=== PATIENT | female | born 1935 | race Caucasian/White ===

== ENCOUNTER → 2017-04-13 | Outpatient (CLI) | payer MEDICARE ==
[~2017-04-13] MED LIST: CALC1TAB87 PO; CALTTAB2 PO; CHOL1TAB42 PO; COZA50TA PO; ENBR50IN4 SQ; GABA300C3 PO; GABA300C5 PO; GLUC250C5 PO; HYDR-2768 PO; HYDR25TA5 PO; LEVO100T4 PO; LEVO100T5 PO; LOSA25TA PO; OCCUVITE PO; OMEG100010 PO; OMEGCAP2 PO; OMEP20TA93 PO; ONE-TAB PO; TAB-TAB PO; TRAM50 PO; TRAM50TA PO; TURM500C7 PO; VITA100017 PO; VITA500T83 PO
--- NOTE | 2017-04-13 10:50 | EKG ---
Date Performed: 04/13/2017 Time Performed: 08:06:48 PTAGE: 81 years EKG: Sinus bradycardia with PAC(s) Left anterior fascicular block rSr'(V1) - probable normal socrates iant Borderline ECG PREVIOUS TRACING : 11/20/2006 10.20 No change from previous tracing noted. DOCTOR: Zeyad Saavedra Interpretating Date/Time 04/13/2017 10:48:11
== END ==
LOC: CPRE 07:50
PROVIDERS: ATTEND Orthopaedic Surgery
DX: Z01.810 Encounter for preprocedural cardiovascular examination (principal); M17.11 Unilateral primary osteoarthritis, right knee; M21.161 Varus deformity, not elsewhere classified, right knee; M71.21 Synovial cyst of popliteal space [Baker], right knee; R94.31 Abnormal electrocardiogram [ECG] [EKG]
CPT/HCPCS: 93005

== ENCOUNTER 2017-04-30 07:11 | Inpatient (IN) | payer MEDICARE ==
[~2017-04-30] VITALS: Ht 162.6 cm; Wt 66.1 kg
[~2017-04-30 07:11] MED LIST changes: -CALTTAB2 PO; -COZA50TA PO; -GABA300C3 PO; -GLUC250C5 PO; -HYDR-2768 PO; -LEVO100T4 PO; -OCCUVITE PO; -OMEGCAP2 PO; -TAB-TAB PO; -TRAM50 PO; -VITA100017 PO
[2017-04-30] MEDS ORDERED: CHLORHEXIDINE GLUCONATE 2 % 1 PACK (2 CLOTHS) TOPICAL PRN (08:00)
[2017-04-30] MEDS ORDERED: POVIDONE IODINE 5% (ANTISEPSIS KIT) 4 APPLICATIONS EACH NARE PRN (08:00)
[2017-04-30] MEDS ORDERED: SODIUM CHLORID 0.9% 500 ML IV PRN (08:00)
[2017-04-30] MEDS ORDERED: ceFAZolin 2 GM PREMIX 50 ML IV SCH (08:00)
[2017-04-30] MEDS ORDERED: METOPROLOL TARTRATE 25 MG TAB PO PRN (08:00)
[2017-04-30] MEDS ORDERED: EXPAREL PERI-ARTICULAR INJECTION (TOTAL VOL. 100 ML) P-ARTICULR SCH ×2 (08:00)
[2017-04-30] MEDS ORDERED: CHLORHEXIDINE GLUCONATE 4% SOLN 120 ML BTL TOPICAL SCH (08:00)
[2017-04-30] MEDS ORDERED: LACTATED RINGER'S 1000 ML IV PRN (08:00)
[2017-04-30] MEDS ORDERED: FAT EMULSION 20% INJ 0 ML ONE (08:22)
[2017-04-30] MEDS ORDERED: LIDOCAINE HCL 1% PF 5 ML AMPULE ONE (08:43)
[2017-04-30] MEDS ORDERED: BUPIVACAINE LIPOSOME PF 1.3% 20 ML VIAL ONE (08:43)
[2017-04-30] MEDS ORDERED: MIDAZOLAM HCL 2 MG/2 ML VIAL ONE ×2 (08:48→13:46)
[2017-04-30 08:50] VITALS: PULSE 120
[2017-04-30] MEDS ORDERED: SODIUM CHLORIDE 0.9% IV SCH ×2 (09:00→12:00)
[2017-04-30] MEDS ORDERED: TRANEXAMIC ACID IV SCH ×2 (09:00→12:00)
[2017-04-30 09:07] VITALS: PULSE 53
[2017-04-30] MEDS ORDERED: GENTAMICIN SULFATE 80 MG/2 ML VIAL ONE (09:16)
[2017-04-30] MEDS ORDERED: MORPHINE SULFATE 4 MG/ML INJ IV PUSH PRN (09:45)
[2017-04-30] MEDS ORDERED: MAGNESIUM HYDROXIDE SUSP 30 ML CUP PO PRN (09:45)
[2017-04-30] MEDS ORDERED: TRANEXAMIC ACID INJ 0 MG in SODIUM CHLORIDE 0.9% INJ 100 ML IV SCH (09:45)
[2017-04-30] MEDS ORDERED: ONDANSETRON HCL 4 MG/2 ML VIAL IVP PRN (09:45)
[2017-04-30] MEDS ORDERED: ACETAMINOPHEN/HYDROcodone 325 MG/7.5 MG TAB PO PRN (09:45)
--- NOTE | 2017-04-30 09:50 | HHI.FF ---
Face to Face Verification Diagnosis: (1) Rheumatoid arthritis involving right knee (2) Primary osteoarthritis of right knee (3) Status post total right knee replacement Physical Therapy Gait training Knee: Total knee, Protocol: Right, Gait training, Full weight bearing Right LE Weight Bearing: WB as tolerated Right LE Range of Motion: Active ROM (active, active-assisted, passive range of motion. Range of motion goal is 0 extension to 135 of flexion.) Nursing Nursing: Dressing changes (start on postop day 7.) Dressing Changes: Daily dressing change (to start on postoperative day 7.), Coverderm/Primapore Additional Instructions Steri-Strips are to be removed on postoperative day 14. I have seen patient Faith Schultz on 04/30/17. My clinical findings support the need for the requested home health care services because: Ltd mobility - disease progression Limited ability to care for self High risk of falls I certify that my clinical findings support that this patient is homebound because: Post-op weakness Unsteady gait/balance Unsafe to leave home unassisted Leo Herrera MD (Charles) Apr 30, 2017 09:50
[2017-04-30] MEDS ORDERED: ECASA81 PO (09:51)
[2017-04-30] MEDS ORDERED: PHENYLEPHRINE HCL 10 MG/ML VIAL IV ONE (12:00)
[2017-04-30] MEDS ORDERED: PROPOFOL 200 MG/20 ML AMP IV ONE (12:00)
[2017-04-30] MEDS ORDERED: PHENYLEPH/NS 1000 MCG/10 ML SYR IV ONE (12:00)
[2017-04-30] MEDS ORDERED: ePHEDrine/NS 25 MG/5 ML SYRINGE IV ONE (12:00)
[2017-04-30] MEDS ORDERED: ESMOLOL HCL 100 MG/10 ML VIAL IV ONE (12:00)
[2017-04-30] MEDS ORDERED: Post-op Orders (for Pharmacy) XX ONE (13:00)
--- NOTE | 2017-04-30 13:08 | HHI.PR ---
Immediate Post Op Note Procedure Date: Apr 30, 2017 Pre Op Diagnosis: (1) Primary osteoarthritis of right knee (2) Rheumatoid arthritis involving right knee Post Op Diagnosis: (1) Primary osteoarthritis of right knee (2) Rheumatoid arthritis involving right knee Surgeon: Valeriano Herrera M.D. Flight Crew Time Clerk(s): CHUYITA Hough Procedure: Right total knee arthroplasty using [place] Triathlon prosthesis (uncemented). Findings: There was severe arthritis in the right knee with diffuse synovitis and significant erosion posteriorly in the medial compartment. Specimen(s) removed: None Estimated blood loss: 350 mL Anesthesia: Regional Block (adductor canal block), Spinal, Local (bupivacaine liposomal) Drains: Hemovac (2) IVF Tourniquet time (min at mmHg) None Patient to: PACU Patient Condition: Good Implant/Devices: SEE IMPLANT LOG (if applicable) Date/Time of Procedure: SEE SURGICAL CARE RECORD Leo Herrera MD (Charles) Apr 30, 2017 13:08
--- NOTE | 2017-04-30 13:17 | PD.OP ---
Operative Report Date of Surgery: Apr 30, 2017 Preoperative Diagnosis: (1) Primary osteoarthritis of right knee (2) Rheumatoid arthritis involving right knee Postoperative Diagnosis: (1) Primary osteoarthritis of right knee (2) Rheumatoid arthritis involving right knee Procedure: Right total knee arthroplasty with [place] Triathlon prosthesis (uncemented) Anesthesia: Spinal with supplemental adductor canal block and local with Exparel area Surgeon: Valeriano Herrera M.D. Telecommunication Operator(s): CHUYITA Hough Operation and Findings: Indications and Findings: This 81-year-old woman has had 8 years of right knee pain progressively worsening secondary to rheumatoid osteoarthritis. Ambulation tolerance is 1 block walker but she is unable to even walk to her mailbox without the walker. She has had continued increasing deformity with difficulty ascending and descending stairs and standing tolerance of only 10 minutes. Treatment has included analgesics, ambulatory aids, exercises, activity modification. Because of problems with gastrointestinal bleeding and gastroparesis she is unable to a nonsteroidal anti-inflammatory agents. Physical findings showed significant varus deformity with medial laxity, osteophytes and crepitation on motion. Radiographic findings were consistent with severe osteoarthritis and rheumatoid arthritis with [id number] appearance , significant medial erosion, osteophytes. Operative findings: There was severe arthritis in the right knee. This was predominantly in the medial compartment but also also was in the lateral patellofemoral compartment. There was erosion 2 major extent in the medial compartment. The synovium was hypertrophic and consistent with rheumatoid arthritis. The prosthesis used was a [place] Triathlon prosthesis. The femur was a size 5, uncemented, cruciate retaining. The tibial baseplate was a size 5 Tritanium with a 13 mm cruciate retaining X3 polyethylene spacer. The patella was a size 35 mm asymmetric Tritanium backed. The patient was brought to the clean-air operating suite after a regional anesthetic by abductor canal block.. A spinal anesthetic was administered. After the spinal anesthetic and then administered, there was observation of a change in the lunchroom monitor. For this reason a second electrocardiogram was obtained. This was compared by 2 anesthesiologists to the previous echocardiogram. A decision was made that this was acceptable and safe to proceed with the procedure. The position was supine with a small bolster under the hip on the operative side. A pneumatic tourniquet was applied to the upper thigh. The lower extremity was then prepped with alcohol, Hibiclens and ChloraPrep and draped in the usual manner with the knee draped free. An appropriate timeout procedure was carried out. An incision was made from about 3 fingerbreadths above the superior medial pole of patella down the tibial tubercle on the medial side. The incision was deepened through the subcutaneous tissue to the retinacular structures which were exposed medially and laterally. A medial retinacular incision was then made from the superior middle pole of patella down the tibial tubercle and up into the quadriceps tendon splitting it longitudinally and the medial one third. The patella was reflected. The infrapatellar fat pad was debulked. The anterior cruciate ligament was excised. Medial and lateral meniscectomies were initiated. A fenestration was made in the distal femur for the intramedullary referencing guide. A fenestration was made in the proximal tibia for the intramedullary referencing guide. The distal femoral cutting guide and jig were then assembled for a 5, 8 mm cut. When this was in position, the cutting block was stabilized with pins. The jig was removed. The distal femoral cut was then completed with the oscillating saw. The sizing guide was then positioned in place along [place] line and the epicondylar axis and stabilized with pins. The femoral size was then determined with the sizing guide. The 4-in-1 cutting block was then positioned in place. Anterior and posterior cuts were made followed by posterior and anterior chamfer cuts taking care to prevent injury to ligamentous structures. Osteophytes were then trimmed from the distal femur. A bone plug was then placed into the fenestration of the distal femur. The proximal tibia was then exposed. The medial and lateral meniscectomies were completed. The proximal tibial cutting guide was then positioned in place and stabilized with a pin for rotation. The depth of cut was then verified with a stylus referencing from the predetermined side. The cutting block was stabilized with pins. The jig was removed. The depth of cut was then verified and adjusted appropriately with the use of the spacer block. The proximal tibial cut was then made with the oscillating saw taking care to prevent injury to neurovascular and ligamentous structures. Proximal tibial bone was removed. Local anesthetic was administered with Exparel in the posterior capsule. The tibial baseplate trial was then positioned in place. After verifying the appropriate size, the base plate trial was positioned in place along with its spacer. The trial femoral component was then impacted into place. The alignment was checked. The trial tibial baseplate was then pinned in place on the tibia. Attention was directed to the patella. The patella drill guide was positioned in place for the appropriate sized patella. Patellar drilling was then carried out. The trial patella was positioned in place. The knee was taken through a range of motion which was easily 0 extension to 135 by gravity. The patella trial was removed. The femoral drill holes were made. The femoral trial prosthesis was removed. The tibial spacer was removed. A bone plug was placed into the proximal tibia. The tibial punch was impacted through the proximal tibial punch guide. This was all removed followed by placement of the tibial drill guide. The tibial drill holes were then made. The guide was removed. The cut ends of bone were then cleaned with pulse lavage. The tibial baseplate was then impacted into place and seated appropriately. The spacer was inserted. The the femoral component was then impacted into place and seated appropriately. The patella component was then seated with the patellar vice and tightened appropriately. The knee was taken through a range of motion which was comparable to the previous range of motion with excellent stability in flexion and extension and appropriate patellofemoral tracking. The remainder of the Exparel was then injected throughout the knee as a local anesthetic. Drains were brought out the superior lateral aspect of the suprapatellar pouch. Wound closure then commenced using 0 Vicryl interrupted [id number] sutures for the capsular and fascial structures, 2-0 Vicryl interrupted simple sutures with buried knots for the subcutaneous tissues and 4- 0 Monocryl, tenuous subcuticular closure for the skin. The wound was then dressed with Steri-Strips followed by Optifoam silver impregnated dressing. Sterile soft roll with a cooling pad and Lev bandage from the base of the toes to mid thigh were then applied. Patient was then transferred from the operating room to the recovery room in satisfactory condition having tolerated procedure well. Counts are correct. Specimens: None. Estimated blood loss: 350 mL Leo Herrera MD (Charles) Apr 30, 2017 13:17
[2017-04-30] MEDS ORDERED: HYDR-3580 PO (13:20)
[2017-04-30] MEDS ORDERED: DO NOT ADM ANY ANTICOAGULANT DRUGS PRN (13:32)
[2017-04-30 13:34] VITALS: PULSE 81
[2017-04-30] MEDS: LACTATED RINGER'S 1000 ML INJ 1,000 ML IV SCH ×2 (14:00→22:13)
[2017-04-30] MEDS: KETOROLAC TROMETHAMINE 30 MG/ML (IVP) VIAL IVP SCH ×2 (14:07→20:06)
[2017-04-30] MEDS ORDERED: *morphine SULFATE 10 MG/ML PERIprocedure ONLY ONE (14:26)
[2017-04-30] MEDS ORDERED: *ONDANSETRON 4 MG VIAL PERIprocedural Use ONLY ONE (14:50)
[2017-04-30] MEDS ORDERED: DIMETHICONE/OXYBENZONE/PADMIATE LIP BALM 4.25 GM TOPICAL ONE (14:51)
--- NOTE | 2017-04-30 15:06 | RADRPT ---
EXAM DATE/TIME: 04/30/2017 14:14 [facility] COMPARISON: No previous studies available for comparison. INDICATIONS : Post op knee surgery MEDICAL HISTORY : None. SURGICAL HISTORY : None. ENCOUNTER: Initial ACUITY: 1 day PAIN SCORE: Non-responsive. LOCATION: Right Knee FINDINGS: AP and lateral views of the knee following arthroplasty reveals a prosthesis in anatomic alignment. F racture is not appreciated. Surgical drain is evident CONCLUSION: Status post total knee arthroplasty. Mike Mercer MD FACR Board Certified Radiologist. This report was verified electronically.
[2017-04-30 17:25] VITALS: BP 110/62; PULSE 72; RESP 17; TEMP 97; O2SAT 96
[2017-04-30 19:50] VITALS: BP 116/48; PULSE 57; RESP 18; TEMP 97.7; O2SAT 95
[2017-04-30] MEDS: PANTOPRAZOLE SOD 20 MG DELAYED RELEASE TAB PO SCH (20:05)
[2017-04-30] MEDS: GABAPENTIN 300 MG CAP PO SCH (20:05)
[2017-04-30] MEDS ORDERED: TURMERIC ROOT EXTRACT PO SCH (21:00)
[2017-04-30] MEDS ORDERED: ZOLPIDEM TARTRATE 5 MG TAB PO PRN (21:00)
[2017-05-01] MEDS: KETOROLAC TROMETHAMINE 30 MG/ML (IVP) VIAL IVP SCH ×3 (01:30→12:57)
[2017-05-01 01:45] VITALS: BP 103/45; PULSE 59; RESP 18; TEMP 99; O2SAT 95
[2017-05-01 05:55] VITALS: BP 114/57; PULSE 58; RESP 18; TEMP 99.1; O2SAT 95
[2017-05-01] MEDS ORDERED: LEVOTHYROXINE SODIUM 100 MCG TAB PO SCH (06:00)
--- NOTE | 2017-05-01 06:04 | PD.ORT.PN ---
Subjective Post Op Day #: 1 Subjective Remarks She is doing well. She has minimal complaints related to the knee at this time. Range of Motion -15 to 90 Distance Walked 20 feet twice with physical therapy. Objective Vitals Vital Signs Date Time Temp Pulse Resp B/P (MAP) Pulse Ox O2 Delivery O2 Flow Rate FiO2 05/01/17 02:30 18 05/01/17 01:45 99.0 59 18 103/45 (64) 95 04/30/17 19:50 97.7 57 18 116/48 (70) 95 04/30/17 17:25 97.0 72 17 110/62 (78) 96 04/30/17 16:00 56 16 114/58 (76) 96 Room Air 04/30/17 15:50 52 16 100/53 (69) 97 Room Air 04/30/17 15:35 16 100 04/30/17 15:30 56 16 115/53 (73) 100 Nasal Cannula 2 04/30/17 15:20 56 16 98/57 (71) 100 Nasal Cannula 2 04/30/17 15:10 58 16 101/56 (71) 100 Nasal Cannula 2 04/30/17 15:05 52 16 63/28 (40) 100 04/30/17 15:00 97.4 48 16 57/33 (41) 100 Nasal Cannula 2 04/30/17 14:30 71 19 164/86 (112) 100 Nasal Cannula 3 04/30/17 14:15 61 12 129/59 (82) 100 Nasal Cannula 3 04/30/17 14:00 59 21 107/52 (70) 100 Nasal Cannula 3 04/30/17 13:45 89 20 93/47 (62) 93 Nasal Cannula 4 04/30/17 13:34 81 04/30/17 13:34 97.8 81 21 111/49 (69) 99 Nasal Cannula 4 04/30/17 09:07 53 04/30/17 08:50 120 04/30/17 08:13 98.2 63 20 193/88 (123) 96 I/O 04/30/17 04/30/17 04/30/17 05/01/17 05/01/17 05/01/17 07:00 15:00 23:00 07:00 15:00 23:00 Intake Total 1300 ml 240 ml 100 ml Output Total 350 ml 40 ml Balance 950 ml 200 ml 100 ml Intake Oral 240 ml IV Total 500 ml 100 ml Other 800 ml Output Drainage Total 40 ml Estimated Blood Loss 350 ml Imaging Last 24 hours Impressions Knee X-Ray 04/30/17 0943 Signed Impressions: Service Date/Time: Sunday, April 30, 2017 14:14 - CONCLUSION: Status post total knee arthroplasty. Mike Mercer MD Objective Remarks She is resting comfortably, supine in bed, in the [facility]. The neurovascular status is intact. The dressing is dry and intact. Assessment & Plan Ortho Post Op Day #: 1 Problem List: (1) Status post total right knee replacement ICD Codes: Z96.651 - Presence of right artificial knee joint Plan: Continue postop care and PT. Assessment and Plan Condition: Good. Orthopedically stable. DVT prophylaxis: TEDs, aspirin, sequentials. Discharge plans: Home with home health care. An appointment was scheduled through the office. Prescriptions: [place] 7.5/325 Leo Herrera MD (Charles) May 01, 2017 06:04
--- NOTE | 2017-05-01 06:23 | HHI.DS ---
Discharge Summary Admission Date Apr 30, 2017 at 07:11 Discharge Date: May 01, 2017 Admitting Diagnosis Osteoarthritis, right knee. Rheumatoid arthritis, right knee. Diagnosis: (1) Status post total right knee replacement Diagnosis: Principal ICD Codes: Z96.651 - Presence of right artificial knee joint (2) Primary osteoarthritis of right knee Diagnosis: Principal ICD Codes: M17.11 - Unilateral primary osteoarthritis, right knee Status: Resolved (3) Rheumatoid arthritis involving right knee Diagnosis: Principal ICD Codes: M06.9 - Rheumatoid arthritis, unspecified Procedures Right total knee arthroplasty using [place] Triathlon prosthesis (uncemented) on 04/30/2017 Brief History This is a 81 year old female patient was admitted with severe osteoarthritis and rheumatoid arthritis in her right knee which was nonresponsive to conservative measures as detailed in the history and physical examination. She had limited ambulation tolerance with pain on activities of daily living. Physical findings showed significant degenerative varum with tenderness on range of motion and crepitation. X-rays showed severe osteoarthritis and rheumatoid arthritis. Significant Findings Last 72 hours Impressions Knee X-Ray 04/30/17942 Signed Impressions: Service Date/Time: Sunday, April 30, 2017 14:14 - CONCLUSION: Status post total knee arthroplasty. Mike Mercer MD Imaging Last 72 hours Impressions Knee X-Ray 04/30/17942 Signed Impressions: Service Date/Time: Sunday, April 30, 2017 14:14 - CONCLUSION: Status post total knee arthroplasty. Mike Mercer MD PE at Discharge She is resting comfortably, supine in bed, in the [facility]. The neurovascular status is intact. The dressing is dry and intact. Hospital Course The patient was admitted as noted above. The above noted operative procedure was carried out that day. Preoperatively prophylactic antibiotics were administered Ancef according to protocol. These were continued postoperatively. The patient also received tranexamic acid to help with hemostasis according to protocol. In the postanesthesia care unit a continuous passive motion device was initiated. Also initiated were mechanical methods of DVT prophylaxis in the form of BRADLEY stockings and sequentials. Physical therapy was initiated on the day of surgery. On postoperative day #1 physical therapy continued. The use of the continuous passive motion device continued. DVT prophylaxis with aspirin 81 mg twice daily was initiated at this time. The patient continued physical therapy throughout the hospitalization. The distance walked and range of motion improved throughout the hospitalization. The patient was discharged on postoperative day 1 with the disposition being to home with home health care. An appointment for follow-up was made prior to admission. Pt Condition on Discharge: Good Discharge Disposition: Disch w/ Home Health Serv Discharge Instructions Diet Instructions: As Tolerated, No Restrictions Activities You Can Perform: Full Weight Bearing, Shower Only-No Bath Activities to Avoid: Lifting/Bending, Strenuous Activity, Bathing, Driving Follow up Referrals: Orthopedics with Leo Herrera MD (Charles) New Medications: Aspirin DR (Aspirin DR) 81 Mg Tabdr 81 MG PO BID for Prevent Blood Clot for 30 Days, #60 TAB Hydrocodone/Acetaminophen (Hydrocodone-Acetamin 7.5-325) 7.5 Mg-325 Mg Tablet 1 TAB PO Q4H PRN for PAIN SCALE 1 TO 10, #50 TAB Continued Medications: Calcium Carbonate-Cholecalciferol (Calcium 600 with Vitamin D) 600-400 mg-Unit Tab 1 TAB PO BID for Calcium Supplement, TAB 0 Refills Cholecalciferol (Vitamin D-3) 2,000 Unit Tab 2000 TAB PO 4XWEEK Etanercept PF Inj (Enbrel Sureclick PF Inj) 50 Mg/Ml Syr 50 MG SQ Q7D, #4 SYRINGE 0 Refills Gabapentin (Gabapentin) 300 Mg Cap 300 MG PO BID, #60 CAP 0 Refills Hydrochlorothiazide (Hydrochlorothiazide) 25 Mg Tab 25 MG PO DAILY, #30 TAB 0 Refills Levothyroxine (Levothyroxine) 100 Mcg Tab 100 MCG PO DAILY for Thyroid, #30 TAB 0 Refills Losartan (Losartan) 25 Mg Tab 25 MG PO DAILY for Blood Pressure Management, #30 TAB 0 Refills Multiple Vitamin (One-A-Day Essential) 1 Tab 1 TAB PO DAILY for Nutritional Supplement, TAB 0 Refills [place]-3 Fatty Acids ([place] 3 1000 mg) 300 Mg-1,000 Mg Cap 300 CAP PO DAILY Omeprazole (Omeprazole) 20 Mg Tab 20 MG PO BID, #30 TAB 0 Refills Tramadol (Tramadol) 50 Mg Tab 100 MG PO TID PRN for PAIN, TAB 0 Refills Turmeric Root Extract (Turmeric) 500 Mg Capsule 500 CAP PO BID Leo Herrera MD (Charles) May 01, 2017 06:23
[2017-05-01 08:00] VITALS: BP 105/43; PULSE 63; RESP 17; TEMP 99.3; O2SAT 97
[2017-05-01 08:22] LABS: HEMATOCRIT 26.5 % (35.0-46.0); HEMOGLOBIN 9.1 GM/DL (11.6-15.3)
[2017-05-01] MEDS: GABAPENTIN 300 MG CAP PO SCH (08:30)
[2017-05-01] MEDS: PANTOPRAZOLE SOD 20 MG DELAYED RELEASE TAB PO SCH (08:30)
[2017-05-01] MEDS: ACETAMINOPHEN/HYDROcodone 325 MG/7.5 MG TAB PO PRN ×2 (08:31→12:58)
[2017-05-01] MEDS ORDERED: OMEGA PO SCH (09:00)
[2017-05-01] MEDS ORDERED: CHOLECALCIFEROL (VIT D3) 1000 UNIT TAB PO SCH (09:00)
[2017-05-01] MEDS ORDERED: LOSARTAN 25 MG TAB PO SCH (09:00)
[2017-05-01] MEDS ORDERED: HYDROCHLOROTHIAZIDE 25 MG TAB PO SCH (09:00)
[2017-05-01] MEDS ORDERED: MULTIVITAMIN TAB PO SCH (09:00)
[2017-05-01] MEDS ORDERED: FATTY ACIDS PO SCH (09:00)
[2017-05-01] MEDS: LACTATED RINGER'S 1000 ML INJ 1,000 ML IV SCH (10:43)
[2017-05-01] MEDS ORDERED: ETANERCEPT 50 MG SQ SCH (11:00)
[2017-05-01] MEDS ORDERED: ASPIRIN EC 81 MG TABEC PO SCH (13:00)
[2017-05-01] MEDS ORDERED: DOCUSATE SODIUM 100 MG CAP PO SCH (21:00)
--- NOTE | 2017-05-02 07:59 | EKG ---
Date Performed: 04/30/2017 Time Performed: 11:01:31 PTAGE: 81 years EKG: Sinus rhythm WITH OCCASIONAL SUPRAVENTRICULAR PREMATURE COMPLEXES MARKED LEFT AXIS DEVIATION MODERATE ST DEPRESSI ON Compared to previous tracing PACs are new, inferior and anterolateral ST depressions are also new, consider ischemia. ABNORMAL ECG PREVIOUS TRACING : 04/13/2017 08.06 DOCTOR: Enrique Alfonso Interpretating Date/Time 05/02/2017 07:58:35
--- NOTE | 2017-05-02 08:03 | EKG ---
Date Performed: 04/30/2017 Time Performed: 13:55:09 PTAGE: 81 years EKG: SINUS BRADYCARDIA WITH SINUS ARRHYTHMIA MARKED LEFT AXIS DEVIATION Compared to previous tra cing previously seen ST depressions have improved. ABNORMAL ECG PREVIOUS TRACING : 04/30/2017 11.01 DOCTOR: Enrique Alfonso Interpretating Date/Time 05/02/2017 08:01:08
== END 2017-05-01 16:14 | disposition home health service (06) | DRG 470 ==
LOC: HSDI 07:11 → N06A 16:27
PROVIDERS: ADMIT Orthopaedic Surgery; ATTEND Orthopaedic Surgery
PROC: 3E0T3BZ Introduction of Anesthetic Agent into Peripheral Nerves and Plexi, Percutaneous Approach (ICD-10-PCS; 2017-04-30)
PROC: 0SRC0JA Replacement of Right Knee Joint with Synthetic Substitute, Uncemented, Open Approach (ICD-10-PCS; principal; 2017-04-30 10:27)
DX: M17.11 Unilateral primary osteoarthritis, right knee (principal); M06.861 Other specified rheumatoid arthritis, right knee; G62.9 Polyneuropathy, unspecified; M21.161 Varus deformity, not elsewhere classified, right knee; K31.84 Gastroparesis; I10 Essential (primary) hypertension; E78.5 Hyperlipidemia, unspecified; I71.4 Abdominal aortic aneurysm, without rupture; K21.9 Gastro-esophageal reflux disease without esophagitis; E05.90 Thyrotoxicosis, unspecified without thyrotoxic crisis or storm
CPT/HCPCS: 73560; 85014; 85018; 86850; 86900; 86901; 86920; 86922; 93005; 94150; C1776; C9290; J0690; J1580; J1885; J2250; J2270; J2370; J2405; J7120; L1830

== ENCOUNTER 2017-11-12 05:32 | Inpatient (IN) ==
[2017-11-12] MEDS ORDERED: Propofol Inj 500 MG/50 ML Vial ONE (05:59)
[2017-11-12] MEDS ORDERED: Chlorhexidine Gluconate 2% 1 Pack (2 Cloths) TOPICAL SCH (06:00)
[2017-11-12] MEDS ORDERED: Sodium Chlor 0.9% Inj 500 ML IV.SIG SCH (06:00)
[2017-11-12] MEDS ORDERED: Metoprolol Tartrate 25 MG Tablet PO SCH (06:00)
[2017-11-12] MEDS ORDERED: Bupivacaine/Dextrose 0.75% Inj 2 ML Ampul ONE (06:01)
[2017-11-12] MEDS ORDERED: Bupivacaine Liposomal PF 1.3% Inj 20 ML Vial ONE (06:05)
[2017-11-12] MEDS ORDERED: Chlorhexidine 4% Topical 120 APPLIC/120 ML Bottle TOPICAL SCH (06:15)
[2017-11-12] MEDS ORDERED: Sodium Chlor 0.9% Inj 50 ML ONE (06:29)
[2017-11-12] MEDS ORDERED: ceFAZolin Inj 2,000 MG in Sodium Chlor 0.9% Inj 80 ML IV.SIG SCH (07:00)
[2017-11-12] MEDS ORDERED: TRANEXAMIC ACID IV.SIG SCH ×3 (07:00→11:00)
[2017-11-12] MEDS ORDERED: SODIUM CHLOR 0.9% IV.SIG SCH ×3 (07:00→11:00)
[2017-11-12] MEDS ORDERED: Sodium Chlor 0.9% Inj 40 ML, Bupivacaine Liposo PF 1.3% Inj 20 ML P-ARTICULR SCH ×2 (07:00)
[2017-11-12] MEDS ORDERED: Aluminum/Magnesium/Simethacone Susp 30 ML UDC PO PRN (07:26)
[2017-11-12] MEDS ORDERED: Morphine Inj 4 MG/ML Vial IV.PUSH PRN (07:26)
[2017-11-12] MEDS ORDERED: Bisacodyl 10 MG Supp RECTAL PRN (07:26)
[2017-11-12] MEDS ORDERED: Post-op Orders (for Pharmacy) OTHER STA (07:26)
[2017-11-12] MEDS ORDERED: Tranexamic Acid Inj 0 MG in Sodium Chlor 0.9% Inj 100 ML IV.SIG ONE (07:26)
[2017-11-12] MEDS ORDERED: Acetaminophen 325 MG Tablet PO PRN (07:26)
--- NOTE | 2017-11-12 07:30 | P.DCO ---
- Physical Therapy Physical Therapy: Gait training Knee: Total knee, Protocol: Left, Gait training, Full weight bearing Left Lower Extremity Weight Bearing: Weight bearing as tolerated Left Lower Extremity Range of Motion: Active ROM (AROM, AAROM, PROM. ROM goal is 0 to 135 degrees.) - Nursing Nursing: Dressing changes Dressing changes: Daily dressing change, Coverderm/Primapore Additional instructions: Do not remove Dermabond Prineo. - Certification Need for Home Health services: I have seen patient Faith Schultz on 11/12/17. My clinical findings support the need for the requested home health care services because: Need for Home Health Services: Deconditioned with increased weakness, Limited ability to care for self, High risk of falls Homebound Certification: I certify that my clinical findings support that this patient is homebound because: Homebound Certification: Post-op weakness, Unsteady gait/balance, Unsafe to leave home unassisted
[2017-11-12] MEDS ORDERED: TURMERIC ROOT EXTRACT 500 MG PO SCH (09:00)
[2017-11-12] MEDS ORDERED: Non-Formulary Drug (Omega-3s-Dha-Epa-Fish Oil [Omega-3 Fish Oil] 1 CAP) PO SCH (09:00)
--- NOTE | 2017-11-12 09:47 | P.OP ---
- Preoperative Diagnosis (1) Primary osteoarthritis of left knee - Postoperative Diagnosis (1) Primary osteoarthritis of left knee Date of procedure: 11/12/17 Procedure: Left total knee arthroplasty using Luis Fernando Triathlon prosthesis (hybrid) Anesthesia: regional (Adductor canal block), local (Exparel), spinal Surgeon: Valeriano Herrera MD Strip Polisher: CHUYITA Gerardo Estimated blood loss (mL): 260 Pathology: none sent Operation and Findings: Indications and Findings: This 82-year-old woman has an 8 year history of left knee pain that has worsened specifically over the past 18 months. She now has an ambulation tolerance of 1 block while using a walker because of the pain. She is unable to walk to her mailbox. She is noted pain down the leg, difficulty with any steps, difficulty walking with a cart store as well as progressive bowing of her left knee. She has not responded to conservative measures including analgesics, activity modification, ambulatory aids and exercise. She cannot take anti-inflammatory agents because of gastrointestinal bleeding and gastroparesis. Physical findings showed a significant genu varum with crepitation on motion and medial laxity. Radiographic findings showed significant osteoarthritis in the medial compartment with loss of bone in the medial tibia, loss of articular cartilage to [id number] especially medially and osteophytes. Operative findings: There is severe osteoarthritis throughout the knee with loss of articular cartilage to [id number] in the medial, lateral and patellofemoral compartments. There are osteophytes as well. There is some subchondral cysts. The prosthesis used was a Melvin Triathlon prosthesis. The femur was a size 5 cemented cruciate retaining. The tibial baseplate was a size 5 Tritanium with a 13 mm cruciate retaining X3 polyethylene spacer. The patella was a size 35 mm asymmetric Tritanium backed. The cement was Symplex. The patient was brought to the clean-air operating suite after administration of a regional anesthetic by adductor canal block. A spinal anesthetic was administered. The position was supine with a small bolster under the hip on the operative side. A pneumatic tourniquet was applied to the upper thigh. The lower extremity was prepped with alcohol, Hibiclens and ChloraPrep and draped in the usual manner with the knee draped free. An appropriate timeout procedure was carried out. An incision was made from about 3 fingerbreadths above the superior medial pole of patella down the tibial tubercle on the medial side. The incision was deepened through the subcutaneous tissue to the retinacular structures which were exposed medially and laterally. A medial retinacular incision was made from the superior medial pole of patella down the tibial tubercle and up into the quadriceps tendon, splitting it longitudinally in the medial one third. The patella was reflected. The infrapatellar fat pad was debulked. The anterior cruciate ligament was excised. Medial and lateral meniscectomies were initiated. Fenestrations were made in the distal femur and proximal tibia for intramedullary referencing guides. The distal femoral cutting guide and jig were assembled for a 5, 8 mm cut. When this was fit into position,the cutting block was stabilized with pins. The jig was removed. The distal femoral cut was completed with the oscillating saw. The sizing guide was positioned in place along Whitesides line and the epicondylar axis and stabilized with pins. The femoral size was determined as noted above. The 4-in-1 cutting block was positioned in place. Anterior and posterior cuts were made followed by posterior and anterior chamfer cuts taking care to prevent injury to ligamentous structures. Osteophytes were trimmed from the distal femur. A bone plug was placed into the fenestration of the distal femur. The proximal tibia was exposed. The medial and lateral meniscectomies were completed. The proximal tibial cutting guide was positioned in place and stabilized with a pin for rotation. The depth of cut was verified with a stylus off the high side. The cutting block was stabilized with pins. The jig was removed. The depth of cut was verified and adjusted appropriately with the use of the spacer block. The proximal tibial cut was made with the oscillating saw taking care to prevent injury to neurovascular and ligamentous structures. Proximal tibial bone was removed. Local anesthetic was administered with Exparel in the posterior capsule. The tibial baseplate trial was positioned in place. After verifying the appropriate size, the base plate trial was positioned in place along with its spacer. The femoral component was impacted into place. The alignment was checked. The tibial baseplate was pinned in place on the tibia. Attention was directed to the patella. The patella drill guide was positioned in place for the appropriate sized patella. Patellar drilling was then carried out. The trial patella was positioned in place. The knee was taken through a range of motion which was easily 0 extension to 140. The patella trial was removed. The femoral drill holes were made. The femoral trials were removed. The tibial spacer was removed. A bone plug was placed into the proximal tibia. The tibial punch was impacted through the proximal tibial punch guide. This was all removed followed by placement of the tibial drill guide. The tibial drill holes were made. The guide was removed. The cut ends of bone were cleaned with pulse lavage. The tibial baseplate was impacted into place and seated appropriately. The spacer was inserted. The the femoral component was impacted into place and seated appropriately. On flexion, it did not hold. For this reason, it was removed. Cut ends of bone were cleaned with pulse lavage. Symplex cement was pressurized into the bone and placed in the back of the prosthesis. The prosthesis was impacted into place and seated appropriately. Excess cement was trimmed. The cement was allowed to cure while the remainder of the procedure commenced. The patella component was seated with the patellar vice and tightened appropriately. The knee was taken through a range of motion which was comparable to the previous range of motion with excellent stability in flexion and extension and appropriate patellofemoral tracking. The remainder of the Exparel was injected throughout the knee as a local anesthetic. Drains were brought out the superior lateral aspect of the suprapatellar pouch. Wound closure commenced using 0 Vicryl interrupted [id number] sutures for the capsular and fascial structures, 2-0 Vicryl interrupted simple sutures with buried knots for the subcutaneous tissues and 4-0 Monocryl, continuous subcuticular closure for the skin. The wound was dressed with Dermabond Prineo followed by a dry sterile dressing. Sterile soft roll with a cooling pad and Lev bandage from the base of the toes to mid thigh were applied. Patient was transferred from the operating room to the recovery room in satisfactory condition having tolerated procedure well. Counts were correct. Specimens: None. Estimated blood loss: 260mL
[2017-11-12] MEDS ORDERED: Ketorolac Inj 30 MG/ML (IVP) Vial ONE (10:34)
[2017-11-12] MEDS ORDERED: Phenylephrine/NS 1000 MCG/10ML Syringe IV.PUSH ONE (12:00)
[2017-11-12] MEDS ORDERED: Lidocaine PF 1% Inj 5 ML Syringe INFILTRATN ONE (12:00)
--- NOTE | 2017-11-12 12:21 | P.CONIM ---
History of Present Illness Consult date: 11/12/17 Requesting Physician: Valeriano Herrera Reason for Consult: Medical Management Primary Care Provider: Milton Zhang History of Present Illness: Mrs. Schultz is an 82 y/o female with HTN, hyperlipidemia, inflammatory polyarthritis, RA, CKD stage 3, iron deficiency anemia, sinus bradycardia and asthma. She was admitted to [facility] [place] on 11/12/17 for left total knee arthroplasty with Dr. Herrera. Pt is seen post-operatively. Her BP is stable. Pts noted to be bradycardic but this is stable. Pts pain is currently controlled. No reported N/V, abd pain, chest pain, SOB or palpitations. Past Medical Hx: Iron deficiency anemia Asthma Sinus bradycardia/PACs/SVT/Atrial tachycardia CKD, stage 3 GERD Gastroparesis GAVE (gastric antral vascular ectasia) Colonic AVMs Hiatal hernia HTN Hyperlipidemia Hypothyroidism Inflammatory polyarthritis Osteoarthritis Osteoporosis/Osteopenia Pulmonary fibrosis Rheumatoid arthritis RLS Hx of trigeminal neuralgia Thoracic AAA (prev 3.9cm in 2016, followed by Dr. Guzman) Vitamin D deficiency Varicose veins in LE [facility] (11/06/17) --> Normal LV function with calculated EF 62% Past Surgical Hx: Anal fissurectomy Cataract surgery Cesarian section D&C Tonsillectomy Anterior C3-4 discectomy and fusion Bilateral upper and lower lid blepharoplasty Family Hx: Mother with hx of scleroderma and renal failure Sister with hx of RA Brother with hx of prostate cancer Social Hx: Denies any alcohol, tobacco or illicit drug use Pt is and lives with spouse Pt is retired Pt worked as an administrative support clerk for [employer] - History History Provided By: Patient - Medical History Medical History: Medical History (Last Reviewed 11/13/17 @ 12:00 by Sarah Pantoja) Afib Anemia Aortic aneurysm Arthritis Back pain Bradycardia Cervical vertebral fusion Fibromyalgia Gastritis Gastroparesis H/O endoscopy Hiatal hernia Hypertension Lower GI bleed Neck pain Rheumatoid arthritis Thyroid disease Tic [place] Use of cane as ambulatory aid Wears glasses - Surgical History Surgical History: Surgical History (Last Reviewed 11/13/17 @ 12:01 by Sarah Pantoja) H/O brain surgery History of carpal tunnel surgery of left wrist History of tonsillectomy and adenoidectomy History of total right knee replacement Status post cataract extraction of both eyes with insertion of intraocular lens - Tobacco History Second Hand Smoke Exposure: No Smoking Status: Never smoker - Alcohol History How Often Do You Have a Drink Containing Alcohol: Never - Substance Use History Substance History: No History of Abuse - Travel History Recent Travel in the [place] Within the Last 8 Weeks: No Recent Travel Out of the Country Within the Last 8 Weeks: No Medications and Allergies Allergies Allergy/AdvReac Type Severity Reaction Status Date / Time lisinopril AdvReac Unknown COUGH, Verified 04/30/17 07:55 THROAT TICKLE CONSTANTLY Home Medications Medication Instructions Recorded Confirmed Type calcium carbonate-vitamin D3 1 tab PO BID 10/18/17 11/12/17 History cholecalciferol (vitamin D3) 2,000 unit PO DAILY 10/18/17 11/12/17 History [Vitamin D3] etanercept [Enbrel SureClick] 50 mg SUB-Q QWEEK 10/18/17 11/12/17 History ferrous sulfate [Slow Fe] 142 mg PO DAILY 10/18/17 11/12/17 History fluorometholone 1 drp OPHTHALMIC (EYE) DAILY 10/18/17 11/12/17 History gabapentin 300 mg PO BID 10/18/17 11/12/17 History hydrochlorothiazide 25 mg PO DAILY 10/18/17 11/12/17 History levothyroxine 100 mcg PO DAILY 10/18/17 11/12/17 History losartan 25 mg PO DAILY 10/18/17 11/12/17 History multivitamin 1 tab PO DAILY 10/18/17 11/12/17 History ujdib-[id number]-epa-fish oil [[place]-3 1 cap PO DAILY 10/18/17 11/12/17 History Fish Oil] omeprazole 20 mg PO BID 10/18/17 11/12/17 History tramadol 1 - 2 tab PO TID PRN 10/18/17 11/12/17 History turmeric root extract 500 mg PO BID 10/18/17 11/12/17 History vit C-vit [id number]-qdp-om-3 1 cap PO DAILY 10/18/17 11/12/17 History [Ocuvite] Active Medications: Active Medications Acetaminophen (Tylenol) 650 mg PO Q6H PRN PRN Reason: Pain Less Than 3 On Scale Hydrocodone Bitart/Acetaminophen ([place] 7.5/325) 2 tab PO Q6H PRN PRN Reason: PAIN SCALE 7 TO 10 SEVERE Hydrocodone Bitart/Acetaminophen ([place] 7.5/325) 1 tab PO Q4H PRN PRN Reason: PAIN SCALE 4 TO 6 MODERATE Al Hydrox/Mg Hydrox/Simethicone (Mag-Al Plus Susp Liq) 30 ml PO Q6H PRN PRN Reason: INDIGESTION Al Hydroxide/Mg Hydroxide (Milk Of Magnesia Liq) 30 ml PO BID PRN PRN Reason: Mild Constipation Aspirin (Aspirin Chew) 81 mg PO BID [facility] Bisacodyl (Dulcolax Supp) 10 mg RECTAL DAILY PRN PRN Reason: SEVERE CONSITIPATION Calcium/Vitamin D (Oscal With D 250/125 Mg) 1 tab PO BID [facility] Chlorhexidine Gluconate (Chlorhexidine 2% Cloth) 3 pack TOPICAL EMERGENCY RESPONSE COORDINATOR [facility] Stop: 11/15/17 05:54 Last Admin: 11/12/17 05:30 Dose: 3 pack Chlorhexidine Gluconate (Hibiclens 4% Topical) 1 applicatio TOPICAL ONCE [facility] Stop: 11/16/17 06:14 Last Admin: 11/12/17 05:30 Dose: 1 applicatio Sodium Chloride 40 ml/ (Bupivacaine Liposome 20 ml) 0 ml P-ARTICULR ONCE [facility] Stop: 11/12/17 13:00 Last Admin: 11/12/17 08:16 Dose: 60 bag Diphenhydramine HCl (Benadryl) 25 mg PO Q6H PRN PRN Reason: ITCHING Ferrous Sulfate (Ferosul) 325 mg PO DAILY [facility] Fluorometholone (Fml Opth Drops) 1 drop EACH EYE DAILY [facility] Gabapentin (Neurontin) 300 mg PO BID [facility] Hydrochlorothiazide (Hydrodiuril) 25 mg PO DAILY [facility] Tranexamic Acid 639 mg/ Sodium (Chloride) 106.39 mls @ 200 mls/hr IV.SIG ONCE [facility] Stop: 11/12/17 13:00 Last Infusion: 11/12/17 09:23 Dose: Infused Lactated Ringer's (Lr 1000 Ml Inj) 1,000 mls @ 30 mls/hr IV.SIG .Q24H [facility] Stop: 11/15/17 05:54 Last Infusion: 11/12/17 09:23 Dose: Infused Sodium Chloride (Ns Inj) 500 mls @ 30 mls/hr IV.SIG .Q10H [facility] Stop: 11/15/17 05:54 Cefazolin Sodium 2,000 mg/ (Sodium Chloride) 100 mls @ 100 mls/hr IV.SIG EMERGENCY RESPONSE COORDINATOR [facility] Stop: 11/13/17 06:59 Last Infusion: 11/12/17 09:23 Dose: Infused Cefazolin Sodium 1,000 mg/ (Sodium Chloride) 100 mls @ 200 mls/hr IV.SIG Q6H [facility] Stop: 11/13/17 01:29 Lactated Ringer's (Lr 1000 Ml Inj) 1,000 mls @ 80 mls/hr IV.CONT .[id number] [facility] Last Admin: 11/12/17 10:46 Dose: 80 mls/hr Tranexamic Acid 639 mg/ Sodium (Chloride) 106.39 mls @ 200 mls/hr IV.SIG EMERGENCY RESPONSE COORDINATOR [facility] Stop: 11/12/17 16:00 Last Admin: 11/12/17 10:53 Dose: 200 mls/hr Ketorolac Tromethamine (Toradol Inj) 15 mg IV.PUSH Q6H [facility] Stop: 11/14/17 04:01 Lactulose (Lactulose Liq) 30 ml PO DAILY PRN PRN Reason: SEVERE CONSITIPATION Levothyroxine Sodium (Synthroid) 100 mcg PO DAILY@0600 [facility] Losartan Potassium (Cozaar) 25 mg PO DAILY [facility] Metoprolol Tartrate (Lopressor) 25 mg PO EMERGENCY RESPONSE COORDINATOR [facility] Stop: 11/15/17 05:54 Last Admin: 11/12/17 07:54 Dose: Not Given Miscellaneous Information ([facility] Nursing Information) 1 each OTHER UNSCH PRN PRN Reason: SEE LABEL COMMENTS Stop: 11/13/17 10:04 Morphine Sulfate (Morphine Inj) 2 mg IV.PUSH Q3H PRN PRN Reason: BREAKTHROUGH PAIN Multivitamins (Theragran) 1 tab PO DAILY [facility] Multivitamins/Minerals (Ocuvite With Lutein) 1 tab PO DAILY [facility] Ondansetron HCl (Zofran Odt) 4 mg PO Q6H PRN PRN Reason: NAUSEA OR VOMITING Pantoprazole Sodium (Protonix) 20 mg PO BID [facility] Patient Own Medication ( Etanercept [Enbrel Sureclick] 50 Mg) 0 each SQ WEEKLY [facility] Povidone Iodine (Betadine 5% Antisepsis Kit) 1 applicatio EACH NARE EMERGENCY RESPONSE COORDINATOR [facility] Stop: 11/15/17 05:54 Last Admin: 11/12/17 06:30 Dose: 1 applicatio Senna/Docusate Sodium (Melissa-Colace) 1 tab PO BID [facility] Sennosides (Senokot) 17.2 mg PO BID PRN PRN Reason: Moderate Constipation Sodium Chloride (Ns Flush) 2 ml IV.FLUSH PRN PRN PRN Reason: FLUSH AFTER USING IV ACCESS Sodium Chloride (Ns Flush) 2 ml IV.FLUSH BID [facility] Tramadol HCl (Ultram) 50 mg PO Q6H PRN PRN Reason: BREAKTHROUGH PAIN Vitamin D (Vitamin D3) 2,000 unit PO DAILY [facility] Zolpidem Tartrate (Ambien) 5 mg PO HS PRN PRN Reason: INSOMNIA Exam Vital signs: Vital Signs 11/12/17 06:20 11/12/17 06:28 11/12/17 06:30 Temperature 97.6 F Pulse Rate 71 58 L Respiratory Rate 20 Blood Pressure Pulse Oximetry 94 L 98 11/12/17 10:02 Temperature 96.2 F L Pulse Rate 53 L Respiratory Rate 14 Blood Pressure 142/65 H Pulse Oximetry 94 L Intake & Output 11/11/17 11/12/17 11/12/17 18:59 06:59 18:59 Intake Total 1400.39 / 1400.39 Output Total 260 / 260 Balance 1140.39 / 1140.39 Weight 63.9 kg Intake: IV 1206.39 / 1206.39 LR 1000 mL Inj 1,000 ML @ 30 1000 / 1000 mls/hr IV.SIG .Q24H [facility] Rx#: [id number] Cyklokapron Inj 639 MG In NS 106.39 / 106.39 Inj 100 ML @ 200 mls/hr IV.SIG ONCE [facility] Rx#:[id number] Ancef Inj 2,000 MG In NS Inj 80 100 / 100 ML @ 100 mls/hr IV.SIG EMERGENCY RESPONSE COORDINATOR [facility] Rx#:[id number] Anesthesia Amount 194 / 194 Output: Estimated Blood Loss 260 / 260 Other: Weight On Admission 63.9 kg Narrative: GENERAL: NAD, AAOx3 SKIN: Warm and dry. HEENT: Atraumatic. Normocephalic. Pupils equal and round. No scleral icterus. No injection or drainage. No nasal bleeding or discharge. Mucous membranes pink and moist. NECK: Trachea midline. No JVD. CARDIO: Regular, bradycardic RESP: No accessory muscle use. Clear to auscultation. Breath sounds equal bilaterally. ABD: +BS, soft, non-tender, nondistended. Hepatic and splenic margins not palpable. EXT: Left knee bandages are c/d/i NEURO: Awake and alert. No obvious cranial nerve deficits. Motor grossly within normal limits. Five out of 5 muscle strength in the arms and legs. Normal speech. PSYCHIATRIC: Appropriate mood and affect; insight and judgment normal. Results - Labs CBC & Chem 7: 11/13/17 05:47 11/13/17 05:47 Labs: Laboratory Results - last 24 hr 11/12/17 06:15 Blood Type O Positive Blood Type Recheck Required Antibody Screen Negative MTS Gel Crossmatch See Detail Bld Prod Order Comment - Imaging Knee X-Ray 11/12/17 07:01 CONCLUSION: 1. Left knee arthroplasty in anatomic alignment without acute fracture. Assessment and Plan - Assessment (1) Status post total left knee replacement not using cement Code(s): Z96.652 - Presence of left artificial knee joint Status: Acute Plan: Osteoarthritis left knee s/p Left TKA on 11/12/17 - Pt is an 82 y/o female with HTN, hyperlipidemia, inflammatory polyarthritis, RA, CKD stage 3, iron deficiency anemia, sinus bradycardia and asthma. - She was admitted to [facility] on 11/12/17 for left total knee arthroplasty with Dr. Herrera. - Post-op pain control per Ortho - IS - PT daily - Constipation precautions - Pt is anticipating d/c with HHC/PT at discharge - DVT prophylaxis with ASA BID per ortho Iron deficiency anemia - Outpt labs prior to admission on 11/01/17 noted Hgb 10.6/Hct 31.1 - Repeat labs post-op - Transfuse as needed HTN - Home meds resumed at admission - Monitor closely Hypothyroidism - Home meds resumed CKD stage 3 - Stable - Monitor labs GERD - Cont. PPI Rheumatoid arthritis - Pt takes Enbrel at home, this is currently on hold (2) Primary osteoarthritis of left knee Code(s): M17.12 - Unilateral primary osteoarthritis, left knee Status: Chronic (3) HTN (hypertension) Code(s): I10 - Essential (primary) hypertension Status: Chronic (4) Sinus bradycardia Code(s): R00.1 - Bradycardia, unspecified Status: Chronic (5) Hypothyroidism Code(s): E03.9 - Hypothyroidism, unspecified Status: Chronic (6) CKD (chronic kidney disease) stage 3, GFR 30-59 ml/min Code(s): N18.3 - Chronic kidney disease, stage 3 (moderate) Status: Chronic (7) Iron deficiency anemia Code(s): D50.9 - Iron deficiency anemia, unspecified Status: Chronic (8) Rheumatoid arthritis Code(s): M06.9 - Rheumatoid arthritis, unspecified Status: Chronic - Attending Attestation Patient examined. Assessment and plan formulated with Elsy Torres PA-C. I agree with the above.
--- NOTE | 2017-11-12 13:02 | XR ---
EXAM DATE: 11/12/2017 12:25 PM EDT AGE/SEX: 82 years / Female INDICATIONS: Post op left total knee CLINICAL DATA: This is the patient's initial encounter. Patient reports that signs and symptoms have been present for 1 day and indicates a pain score of Nonresponsive. MEDICAL/SURGICAL HISTORY: Non-responsive. Non-responsive. [place] [facility] [place] [facility] (1 OR 2 VWS[place] 04/30/2017. . FINDINGS: Left knee arthroplasty in anatomic alignment. The hardware appears intact. Osseous structures are int act without significant acute fracture. Post surgical soft tissue changes with surgical drains in khari ce. CONCLUSION: 1. Left knee arthroplasty in anatomic alignment without acute fracture. Electronically signed by: Pasha Andrews MD 11/12/2017 1:01 PM EDT
[2017-11-12 16:08] LABS: Baso % (Auto) 0.1 % (0.0-2.0); Eos % (Auto) 0.2 % (0.0-4.0); Hematocrit 28.7 % (35.0-46.0); Hemoglobin 9.5 gm/dL (11.6-15.3); Lymph # (Auto) 0.4 th/mm3 (1.0-4.8); Lymph % (Auto) 5.5 % (9.0-44.0); Mean Corpuscular HGB Conc 33.1 % (32.0-36.0); Mean Corpuscular Hemoglobin 28.4 pg (27.0-34.0); Mean Corpuscular Volume 85.8 fL (80.0-100.0); Mean Platelet Volume 9.7 fL (7.0-11.0); Mono # (Auto) 0.6 th/mm3 (0.0-0.9); Mono % (Auto) 8.3 % (0.0-8.0); Neut # (Auto) 6.7 th/mm3 (1.8-7.7); Neut % (Auto) 85.9 % (16.0-70.0); Platelet Count 147 th/mm3 (150-450); Red Blood Count 3.34 mil/mm3 (4.00-5.30); Red Cell Distribution Width 14.3 % (11.6-17.2); White Blood Count 7.8 th/mm3 (4.0-11.0)
[2017-11-12] MEDS: Gabapentin 300 MG Capsule PO SCH ×2 (20:47→21:52)
[2017-11-12] MEDS: Fluorometholone 0.1% Opth Drops 5 ML Bottle EACH EYE SCH (20:47)
[2017-11-12] MEDS: hydroCHLOROthiazide 25 MG Tablet PO SCH (20:47)
[2017-11-12] MEDS: Calcium/Vitamin D 250/125 MG Tablet PO SCH ×2 (20:48→21:52)
[2017-11-12] MEDS: Pantoprazole Sodium 20 MG DR Tablet PO SCH ×2 (20:48→21:52)
[2017-11-12] MEDS: Senna/Docusate Sodium 8.6/50 MG Tablet PO SCH ×2 (20:48→21:53)
[2017-11-12] MEDS: Vitamins A,C,E/Lutein/Minerals Tablet PO SCH (20:48)
[2017-11-12] MEDS: Ketorolac Inj 30 MG/ML (IVP) Vial IV.PUSH SCH ×3 (20:49→21:52)
[2017-11-12] MEDS ORDERED: Zolpidem Tartrate 5 MG Tablet PO PRN (21:00)
[2017-11-13] MEDS: Ketorolac Inj 30 MG/ML (IVP) Vial IV.PUSH SCH ×2 (05:01→09:25)
--- NOTE | 2017-11-13 05:57 | P.PNOP ---
Subjective Interval history: Postop day #1 She is doing well. She has minimal complaints related to the knee at this time. She did have some pain but is doing well at this time. Physical therapy reports that the ambulation distance was 40 feet. The range of motion was -4 extension to 83 of flexion. Physical Exam Vital signs: Vital Signs 11/12/17 06:20 11/12/17 06:28 11/12/17 06:30 Temperature 97.6 F Pulse Rate 71 58 L Respiratory Rate 20 Blood Pressure Pulse Oximetry 94 L 98 11/12/17 10:02 11/12/17 10:15 11/12/17 10:30 Temperature 96.2 F L Pulse Rate 53 L 48 L 48 L Respiratory Rate 14 14 14 Blood Pressure 142/65 H 157/66 H 158/67 H Pulse Oximetry 94 L 94 L 94 L 11/12/17 10:45 11/12/17 11:00 11/12/17 11:15 Temperature 96.8 F L Pulse Rate 46 L 45 L 51 L Respiratory Rate 14 14 14 Blood Pressure 179/71 H 149/79 H 144/75 H Pulse Oximetry 92 L 93 L 94 L 11/12/17 11:30 11/12/17 12:00 11/12/17 16:00 Temperature 97.4 F L 97.2 F L 97.4 F L Pulse Rate 53 L 49 L 59 L Respiratory Rate 14 18 18 Blood Pressure 136/64 150/65 H 111/56 L Pulse Oximetry 95 100 99 11/12/17 19:46 11/12/17 21:01 11/13/17 00:00 Temperature 97.9 F 99.7 F H Pulse Rate 79 85 Respiratory Rate 17 18 Blood Pressure 120/83 116/62 Pulse Oximetry 100 97 11/13/17 04:00 Temperature 98.9 F Pulse Rate 68 Respiratory Rate 18 Blood Pressure 104/51 L Pulse Oximetry 98 Intake & Output 11/12/17 11/12/17 11/13/17 06:59 18:59 06:59 Intake Total 2554.39 / 2554.39 100 / 100 Output Total 1020 / 1020 170 / 170 Balance 1534.39 / 1534.39 -70 / -70 Weight 63.9 kg Intake: IV 1206.39 / 1206.39 100 / 100 LR 1000 mL Inj 1,000 ML @ 30 1000 / 1000 mls/hr IV.SIG .Q24H CHARISSE Rx#: [id number] Cyklokapron Inj 639 MG In NS 106.39 / 106.39 Inj 100 ML @ 200 mls/hr IV.SIG ONCE CHARISSE Rx#:[id number] Ancef Inj 1,000 MG In NS Inj 100 / 100 100 ML @ 200 mls/hr IV.SIG Q6H CHARISSE Rx#:[id number] Ancef Inj 2,000 MG In NS Inj 80 100 / 100 ML @ 100 mls/hr IV.SIG TWISTING PRESS OPERATOR CHARISSE Rx#:[id number] Oral 960 / 960 Anesthesia Amount 388 / 388 Output: Urine 500 / 500 Estimated Blood Loss 520 / 520 Wound Drainage 170 / 170 Hemovac 170 / 170 Other: # Voids 2 2 Date of Last Bowel Movement 11/11/17 Weight On Admission 63.9 kg Narrative: She is resting comfortably, supine in bed. The dressing is dry and intact. Her neurovascular status is intact. Results - Labs CBC & Chem 7: 11/13/17 05:47 11/13/17 05:47 Laboratory Results - last 24 hr 11/12/17 11/12/17 06:15 15:35 WBC 7.8 RBC 3.34 L Hgb 9.5 L Hct 28.7 L MCV 85.8 MCH 28.4 MCHC 33.1 RDW 14.3 Plt Count 147 L D MPV 9.7 Neut % (Auto) 85.9 H Lymph % (Auto) 5.5 L [place] % (Auto) 8.3 H Eos % (Auto) 0.2 Baso % (Auto) 0.1 Neut # (Auto) 6.7 Lymph # (Auto) 0.4 L [place] # (Auto) 0.6 Eos # (Auto) 0.0 Baso # (Auto) 0.0 WBC Differential . Differential Comment Auto diff final Blood Type O Positive Blood Type Recheck Required Antibody Screen Negative MTS Gel Crossmatch See Detail Bld Prod Order Comment - Imaging Impressions Knee X-Ray 11/12/17 07:01 CONCLUSION: 1. Left knee arthroplasty in anatomic alignment without acute fracture. - Procedures Left total knee arthroplasty with [place] Triathlon prosthesis (hybrid) on 2017 Assessment and Plan - Ortho Post Op Day # 1 - Problem List (1) Status post total left knee replacement not using cement Code(s): Z96.652 - Presence of left artificial knee joint Status: Acute Plan: Continue postop care and PT. - Assessment and Plan Condition: Good. Orthopedically stable. DVT prophylaxis: TEDs, aspirin, sequentials. Discharge plans: Home with home health care. An appointment was scheduled through the office. Prescriptions: [place] 7.5/325; Patient is having significant pain caused by a total knee arthroplasty which will last more than 3 days. Trial of Tylenol has not helped. I believe that it is medically necessary to treat patients pain because it is affecting patients ability to participate in postoperative rehabilitation and perform activities of daily living in a comfortable and efficient manner.
[2017-11-13] MEDS ORDERED: Levothyroxine 100 MCG Tablet PO SCH (06:00)
[2017-11-13 06:28] LABS: Baso % (Auto) 0.5 % (0.0-2.0); Eos # (Auto) 0.1 th/mm3 (0.0-0.4); Hematocrit 23.5 % (35.0-46.0); Hemoglobin 7.8 gm/dL (11.6-15.3); Lymph # (Auto) 0.5 th/mm3 (1.0-4.8); Lymph % (Auto) 12.6 % (9.0-44.0); Mean Corpuscular HGB Conc 33.3 % (32.0-36.0); Mean Corpuscular Hemoglobin 27.8 pg (27.0-34.0); Mean Corpuscular Volume 83.4 fL (80.0-100.0); Mean Platelet Volume 9.9 fL (7.0-11.0); Mono # (Auto) 0.5 th/mm3 (0.0-0.9); Mono % (Auto) 12.8 % (0.0-8.0); Neut # (Auto) 2.7 th/mm3 (1.8-7.7); Neut % (Auto) 71.1 % (16.0-70.0); Platelet Count 124 th/mm3 (150-450); Red Blood Count 2.82 mil/mm3 (4.00-5.30); Red Cell Distribution Width 14.1 % (11.6-17.2); White Blood Count 3.8 th/mm3 (4.0-11.0)
--- NOTE | 2017-11-13 06:45 | P.DS ---
Date of admission: 11/12/17 05:32 Primary care physician: Milton Zhang Attending physician on discharge: Valeriano Herrera Anticipated date of discharge: 11/13/17 Brief History from admission: This 82-year-old woman has had long-standing arthritis in her left knee nonresponsive to conservative measures as detailed in history and physical examination. Physical findings showed significant varus deformity with medial laxity, crepitation on motion, palpable osteophytes and an effusion. She walks with an antalgic gait. X-rays showed severe osteoarthritis particularly in the medial compartment but also tricompartmental. There was loss of articular cartilage medially to [id number] with osteophytes and subchondral sclerosis. DS: Diagnosis - Discharge Diagnosis (1) Status post total left knee replacement not using cement Status: Acute Diagnosis: Principal (2) CKD (chronic kidney disease) stage 3, GFR 30-59 ml/min Status: Chronic Diagnosis: Secondary (3) HTN (hypertension) Status: Chronic Diagnosis: Secondary (4) Hypothyroidism Status: Chronic Diagnosis: Secondary (5) Iron deficiency anemia Status: Chronic Diagnosis: Secondary (6) Primary osteoarthritis of left knee Status: Chronic Diagnosis: Principal (7) Rheumatoid arthritis Status: Chronic Diagnosis: Secondary (8) Sinus bradycardia Status: Chronic Diagnosis: Secondary DS: Medications - Discharge Medications Prescriptions: hydrocodone-acetaminophen 1 tab PO Q4H PRN 7 Days #42 tab PRN Reason: Pain, Severe DS: Summary Hospital Course: The patient was admitted as noted above. The above noted operative procedure was carried out that day. Preoperatively prophylactic antibiotics were administered Ancef according to protocol. These were continued postoperatively. The patient also received tranexamic acid to help with hemostasis according to protocol. In the postanesthesia care unit mechanical methods of DVT prophylaxis in the form of BRADLEY stockings and sequentials were initiated. Physical therapy was initiated on the day of surgery. On postoperative day #1 physical therapy continued. The use of the continuous passive motion device continued. DVT prophylaxis with aspirin 81 mg was initiated at this time. The patient continued physical therapy throughout the hospitalization. The distance walked and range of motion improved throughout the hospitalization. The patient was discharged on postoperative day 1 with the disposition being to home with home health care. An appointment for follow-up was made prior to admission. - Time Spent with Patient Total time spent providing and/or coordinating discharge services: Less than 30 minutes - Quality: VTE Deep Vein Thrombosis/Pulmonary Embolism Present on Admission: No Exam Vital signs: Vital Signs 11/12/17 10:02 11/12/17 10:15 11/12/17 10:30 Temperature 96.2 F L Pulse Rate 53 L 48 L 48 L Respiratory Rate 14 14 14 Blood Pressure 142/65 H 157/66 H 158/67 H Pulse Oximetry 94 L 94 L 94 L 11/12/17 10:45 11/12/17 11:00 11/12/17 11:15 Temperature 96.8 F L Pulse Rate 46 L 45 L 51 L Respiratory Rate 14 14 14 Blood Pressure 179/71 H 149/79 H 144/75 H Pulse Oximetry 92 L 93 L 94 L 11/12/17 11:30 11/12/17 12:00 11/12/17 16:00 Temperature 97.4 F L 97.2 F L 97.4 F L Pulse Rate 53 L 49 L 59 L Respiratory Rate 14 18 18 Blood Pressure 136/64 150/65 H 111/56 L Pulse Oximetry 95 100 99 11/12/17 19:46 11/12/17 21:01 11/13/17 00:00 Temperature 97.9 F 99.7 F H Pulse Rate 79 85 Respiratory Rate 17 18 Blood Pressure 120/83 116/62 Pulse Oximetry 100 97 11/13/17 04:00 Temperature 98.9 F Pulse Rate 68 Respiratory Rate 18 Blood Pressure 104/51 L Pulse Oximetry 98 Intake & Output 11/12/17 11/12/17 11/13/17 06:59 18:59 06:59 Intake Total 2554.39 / 2554.39 1200 / 1200 Output Total 1020 / 1020 170 / 170 Balance 1534.39 / 1534.39 1030 / 1030 Weight 63.9 kg Intake: IV 1206.39 / 1206.39 1200 / 1200 LR 1000 mL Inj 1,000 ML @ 80 1000 / 1000 mls/hr IV.CONT .[id number] CHARISSE Rx# :[id number] LR 1000 mL Inj 1,000 ML @ 30 1000 / 1000 mls/hr IV.SIG .Q24H CHARISSE Rx#: [id number] Cyklokapron Inj 639 MG In NS 106.39 / 106.39 Inj 100 ML @ 200 mls/hr IV.SIG ONCE CHARISSE Rx#:[id number] Ancef Inj 1,000 MG In NS Inj 200 / 200 100 ML @ 200 mls/hr IV.SIG Q6H CHARISSE Rx#:[id number] Ancef Inj 2,000 MG In NS Inj 80 100 / 100 ML @ 100 mls/hr IV.SIG AGENTS' RECORDS CLERK CHARISSE Rx#:[id number] Oral 960 / 960 Anesthesia Amount 388 / 388 Output: Urine 500 / 500 Estimated Blood Loss 520 / 520 Wound Drainage 170 / 170 Hemovac 170 / 170 Other: # Voids 2 2 Date of Last Bowel Movement 11/11/17 Weight On Admission 63.9 kg Narrative: She is resting comfortably, supine in bed. The dressing is dry and intact. The neurovascular status is intact. Results Procedures completed during hospitalization: Left total knee arthroplasty with [place] Triathlon prosthesis (hybrid) on 2017 Labs on day of discharge: Labs from last 24 hours 11/13/17 11/13/17 11/12/17 05:47 05:47 15:35 WBC 3.8 L D 7.8 RBC 2.82 L 3.34 L Hgb 7.8 L 9.5 L Hct 23.5 L 28.7 L MCV 83.4 85.8 MCH 27.8 28.4 MCHC 33.3 33.1 RDW 14.1 14.3 Plt Count 124 L 147 L D MPV 9.9 9.7 Neut % (Auto) 71.1 H 85.9 H Lymph % (Auto) 12.6 5.5 L [place] % (Auto) 12.8 H 8.3 H Eos % (Auto) 3.0 0.2 Baso % (Auto) 0.5 0.1 Neut # (Auto) 2.7 6.7 Lymph # (Auto) 0.5 L 0.4 L [place] # (Auto) 0.5 0.6 Eos # (Auto) 0.1 0.0 Baso # (Auto) 0.0 0.0 WBC Differential . . Differential Comment Auto diff final Auto diff final Sodium Pending Potassium Pending Chloride Pending Carbon Dioxide Pending Anion Gap Pending BUN Pending Creatinine Pending Random Glucose Pending Calcium Pending Blood Type Blood Type Recheck Antibody Screen MTS Gel Crossmatch Bld Prod Order Comment 11/12/17 06:15 WBC RBC Hgb Hct MCV MCH MCHC RDW Plt Count MPV Neut % (Auto) Lymph % (Auto) [place] % (Auto) Eos % (Auto) Baso % (Auto) Neut # (Auto) Lymph # (Auto) [place] # (Auto) Eos # (Auto) Baso # (Auto) WBC Differential Differential Comment Sodium Potassium Chloride Carbon Dioxide Anion Gap BUN Creatinine Random Glucose Calcium Blood Type O Positive Blood Type Recheck Required Antibody Screen Negative MTS Gel Crossmatch See Detail Bld Prod Order Comment - Impressions ITS Impressions Knee X-Ray 11/12/17 07:01 CONCLUSION: 1. Left knee arthroplasty in anatomic alignment without acute fracture. Discharge Plan - Discharge Disposition Patient Disposition: W/Home Health Service - Discharge Condition Condition: Stable - Discharge Order Discharge Orders: Discharge Order (Routine); Ordered 11/13/17 Ordered By: Valeriano Herrera - Discharge Details Anticipated Discharge Date: 11/13/17 - Physicians Team Primary Care Provider: Milton Zhang Attending Provider: Valeriano Herrera Other Providers: John Darby DO ; [facility] - Rxs /Orders / Referrals /Forms Prescriptions: New aspirin 81 mg Tablet,Chewable 81 mg PO BID RF: 0 hydrocodone-acetaminophen 7.5-325 mg Tablet 1 tab PO Q4H PRN (Reason: Pain, Severe) 7 Days Qty: 42 RF: 0 Continue calcium carbonate-vitamin D3 600 mg (1,500 mg)-2,500 unit Capsule 1 tab PO BID cholecalciferol (vitamin D3) [Vitamin D3] 2,000 unit Capsule 2,000 unit PO DAILY etanercept [Enbrel SureClick] 50 mg/mL (0.98 mL) Pen Injector 50 mg SUB-Q QWEEK ferrous sulfate [Slow Fe] 142 mg (45 mg iron) Tablet Extended Release 142 mg PO DAILY fluorometholone 0.1 % Drops,Suspension 1 drp OPHTHALMIC (EYE) DAILY gabapentin 300 mg Capsule 300 mg PO BID hydrochlorothiazide 25 mg Tablet 25 mg PO DAILY levothyroxine 100 mcg Capsule 100 mcg PO DAILY losartan 25 mg Tablet 25 mg PO DAILY multivitamin Tablet 1 tab PO DAILY [id number]-fish oil [Draper-3 Fish Oil] 300-1,000 mg Capsule 1 cap PO DAILY omeprazole 20 mg Capsule,Delayed Release(Dr/Ec) 20 mg PO BID tramadol 50 mg Tablet 1 - 2 tab PO TID PRN (Reason: Pain) turmeric root extract 500 mg Capsule 500 mg PO BID vit C-vit P-[id number]-om-3 [Ocuvite] [id number] px-mnus-td-mg Capsule 1 cap PO DAILY Referrals: Valeriano Herrera MD [Physician] - See Instructions Milton Zhang MD [Primary Care Provider] - See Instructions - Discharge Instructions Patient Printed Instructions: Hydrocodone/Acetaminophen (By mouth), Aspirin ( By mouth), How to Choose and Use a Walker (GEN), Pain Management After Surgery ( DC), Knee Replacement (DC) Additional Instructions: Your Health Problems: Goals to Promote Your Health: * To prevent worsening of your condition * To maintain your health at the optimal level Directions to Meet Your Goals: * Take your medications as prescribed * Follow your dietary instruction * Follow activity as directed * Keep your appointments as scheduled * Take your immunizations and boosters as scheduled * If your symptoms worsen call your PCP * If no PCP go to Urgent Care or Emergency Room Smoking is dangerous to your health. Avoid second hand smoke. You may reach the 24-hour crisis hotline for domestic abuse at . * * Discharge Care Plan Goals for Total Knee Replacement You have undergone knee replacement surgery. Your doctor replaced your painful joint with an artificial joint to relieve pain and restore movement. Here are some goals to help you heal well. Directions to Meet your Goals: 1. Activity & Exercises: * Take pain medicine as directed by your doctor. * Sit in chairs with arms. The arms make it easier for you to stand up or sit down. * Dont sit for more than 30 to 45 minutes at one time. * Nap if you are tired, but dont stay in bed all day. * Sleep with a pillow under your ankle, not your knee. Be sure to change the position of your leg during the night. * Wear the support stockings you were given in the hospital as directed by your surgeon. 2. Prevent Falls/Injury: The good to successful recovery is movement with walking and exercising your knee as directed by your doctor. * Arrange your household to keep the items you need handy. Keep everything else out of the way. * Remove items that may cause you to fall, such as throw rugs and electrical cords. * Use nonslip bath mats, grab bars, an elevated toilet seat, and a shower chair in your bathroom * Sit on a shower stool or chair when you shower to keep from falling. * Until your balance, flexibility, and strength improve, use a cane, crutches, a walker, handrails, or someone to help you. * Keep your hands free by using a backpack, jacquelyn pack, apron, or pockets to carry things * Walk up and down stairs with support. Try one step at a time. Use the railing if possible. * Dont drive until your doctor says its OK. * Dont drive while you are taking opioid pain medicine. 3. Precautions: * Prevent infection. Any infection will need to be treated immediately. Call your doctor right away if you think you might have an infection. * Tell your dentist that you have an artificial joint and take antibiotics as prescribed before any dental work. * Tell all your healthcare providers about your artificial joint before any medical procedure. * Maintain a healthy weight. Get help to lose any extra pounds. Added body weight puts stress on the knee. * Your medications may include blood-thinning medicine to prevent blood clots or antibiotics to prevent infection-prevent any falls or cuts 4. Incision Care: * Prevent infection by washing your hands often. If an infection occurs, it will need to be treated right away. * Call your doctor right away if you think you may have an infection. Symptoms include a fever or an incision that leaks white, green, or yellow fluid. * Don't soak your incision in water until your doctor says its OK. This means no hot tubs, bathtubs, or swimming pools. * Follow your doctor's instructions for changing the dressing. * Dont rub the incision, or apply creams or lotions to it. * If you notice any redness or drainage around the bandage site, contact your surgeon's office immediately. 5. Follow-Up: Do Not miss your follow-up appointment. Keep up with all your appointments and yearly check ups When to call your doctor: Call your doctor right away if you have: Fever of 100.4F (38C) or higher, or as directed by your doctor Shaking chills Stiffness, or inability to move the knee Increased swelling in your leg Increased redness, tenderness, or swelling in or around the knee incision Drainage from the knee incision Increased knee pain Call 911: Call 911 right away if you have: Chest pain Shortness of breath Any pain or tenderness in your calf
[2017-11-13 06:52] LABS: Calcium 8.3 mg/dL (8.5-10.1); Carbon Dioxide 28.6 meq/L (21.0-32.0); Potassium 3.8 meq/L (3.5-5.1)
[2017-11-13] MEDS ORDERED: ETANERCEPT 50 MG SQ SCH (09:00)
[2017-11-13] MEDS ORDERED: Ferrous Sulfate 325 MG Tablet PO SCH (09:00)
[2017-11-13] MEDS: Pantoprazole Sodium 20 MG DR Tablet PO SCH (09:24)
[2017-11-13] MEDS: Gabapentin 300 MG Capsule PO SCH (09:24)
[2017-11-13] MEDS: Senna/Docusate Sodium 8.6/50 MG Tablet PO SCH (09:24)
[2017-11-13] MEDS: Calcium/Vitamin D 250/125 MG Tablet PO SCH (09:25)
[2017-11-13] MEDS: Fluorometholone 0.1% Opth Drops 5 ML Bottle EACH EYE SCH (09:25)
[2017-11-13] MEDS: hydroCHLOROthiazide 25 MG Tablet PO SCH (09:26)
[2017-11-13] MEDS: Vitamins A,C,E/Lutein/Minerals Tablet PO SCH (09:27)
== END 2017-11-13 15:02 | disposition home health service (06) ==
LOC: HSDI 05:32 → N06 11:44
PROVIDERS: ADMIT Orthopaedic Surgery; ATTEND Orthopaedic Surgery